=== PATIENT | male | born 1990 | race African-American/Black ===

== ENCOUNTER 2017-03-02 23:03 | Emergency (ER) | payer MEDICAID ==
[~2017-03-02] VITALS: Ht 185.4 cm; Wt 66.0 kg
[~2017-03-02 23:03] MED LIST: ARIP5TAB9 PO; MIRT15 PO
[2017-03-02 23:40] VITALS: BP 121/70
[2017-03-03] MEDS ORDERED: BACITRACIN 0.9 GM PACKET OINTMENT TP ONE
[2017-03-03] MEDS ORDERED: IBUPROFEN 600 MG TABLET PO ONE
== END 2017-03-03 00:22 | disposition home or self-care (01) ==
LOC: EDBD 23:05 → EMS 23:05
DX: S90.511A Abrasion, right ankle, initial encounter (principal); W18.40XA Slipping, tripping and stumbling without falling, unspecified, initial encounter; Y93.89 Activity, other specified; Y92.89 Other specified places as the place of occurrence of the external cause; Y99.8 Other external cause status
CPT/HCPCS: 99283

== ENCOUNTER 2017-05-30 16:06 | Inpatient (IN) | payer MEDICAID, OTHER ==
[~2017-05-30] VITALS: Ht 185.4 cm; Wt 52.2 kg
[~2017-05-30 16:06] MED LIST changes: +ARIP5TAB8 PO; -ARIP5TAB9 PO
[2017-05-30] MEDS ORDERED: CITA20TA9 PO (16:15)
[2017-05-30 18:59] LABS: BASOPHILS % (AUTO) 0.2 % (0.0-2.0); EOSINOPHILS % (AUTO) 1.8 % (1.0-6.0); HEMATOCRIT 44.7 % (41-53); HEMOGLOBIN 15.7 g/dL (13.5-17.5); LYMPHOCYTES # (AUTO) 1.5 K/uL (1.0-4.8); LYMPHOCYTES % (AUTO) 26.8 % (22.0-44.0); MEAN CORPUSCULAR HEMOGLOBIN 30.4 pg (26.0-34.0); MEAN CORPUSCULAR HGB CONC 35.1 G/dL (31.0-37.0); MEAN CORPUSCULAR VOLUME 87 fL (80-100); MONOCYTES # (AUTO) 0.2 K/uL (0.1-1.0); MONOCYTES % (AUTO) 4.3 % (2.0-9.0); NEUTROPHILS # (AUTO) 3.7 K/uL (1.8-7.7); NEUTROPHILS % (AUTO) 66.9 % (40.0-70.0); PLATELET COUNT (AUTO) 165 K/uL (150-450); RED BLOOD CELL COUNT(AUTO) 5.15 MIL/uL (4.50-5.90); RED CELL DISTRIBUTION WIDTH 13.1 % (11.5-14.5); WHITE BLOOD COUNT (AUTO) 5.5 K/uL (4.5-11.0)
[2017-05-30] MEDS ORDERED: LORazepam 1 MG TABLET PO PRN (19:00)
[2017-05-30] MEDS ORDERED: ZOLPIDEM TARTRATE 10 MG TABLET PO PRN (19:00)
[2017-05-30] MEDS ORDERED: HALOPERIDOL 5 MG TABLET PO PRN (19:00)
[2017-05-30 19:10] LABS: ANION GAP 5 mmol/L (8-16); CALCIUM, TOTAL 9.1 mg/dL (8.8-10.5); CARBON DIOXIDE 31 mmol/L (22-29); CHLORIDE 102 mmol/L (98-107); CREATININE 0.83 mg/dL (0.60-1.30); GLOMERULAR FILTR. RATE CALC > 60 mL/min (>60); POTASSIUM 3.8 mmol/L (3.5-5.1); SODIUM SERUM 138 mmol/L (136-145); UREA NITROGEN, BLOOD 10 mg/dL (7-18)
[2017-05-30 19:16] LABS: ALANINE AMINOTRANSFERASE 18 U/L (12-78); ALBUMIN 4.3 g/dL (3.4-5.0); ASPARTATE AMINOTRANSFERASE 20 U/L (15-37); BILIRUBIN,TOTAL 1.5 mg/dL (0.1-1.0); TOTAL PROTEIN, SERUM 8.1 g/dL (6.4-8.2)
[2017-05-30] MEDS ORDERED: INFLUENZA VIRUS VACCINE QVS 2017-18 (3YR+)/PF 60 MCG/0.5 ML SYRINGE IM ONE (20:30)
[2017-05-30 20:36] VITALS: BP 100/56
[2017-05-30] MEDS: MIRTAZAPINE 15 MG TABLET PO SCH (20:45)
[2017-05-30] MEDS ORDERED: CITALOPRAM HYDROBROMIDE 20 MG TABLET PO SCH (21:00)
[2017-05-31 08:30] VITALS: BP 128/66
[2017-05-31] MEDS ORDERED: ARIPiprazole 5 MG TABLET PO SCH (09:00)
[2017-05-31] MEDS ORDERED: BENZOCAINE/MENTHOL LOZENGE MM PRN (09:15)
[2017-05-31] MEDS ORDERED: LOPERAMIDE HCL 2 MG CAPSULE PO PRN (09:15)
[2017-05-31] MEDS ORDERED: ACETAMINOPHEN 325 MG TABLET PO PRN (09:15)
[2017-05-31] MEDS ORDERED: PETROLATUM,WHITE 71 GM JELLY TP PRN (09:15)
[2017-05-31] MEDS ORDERED: ALBUTEROL SULFATE HFA 90 MCG/PUFF 8 GM INHALER IH PRN (09:15)
[2017-05-31] MEDS ORDERED: MAG HYDROX/AL HYDROX/SIMETH ES 30 ML SUSPENSION UDCUP PO PRN (09:15)
[2017-05-31] MEDS ORDERED: ONDANSETRON HCL 4 MG TABLET PO PRN (09:15)
[2017-05-31] MEDS ORDERED: CloNIDine HCL 0.1 MG TABLET PO PRN (09:15)
[2017-05-31] MEDS ORDERED: IBUPROFEN 600 MG TABLET PO PRN (09:15)
[2017-05-31] MEDS ORDERED: BACITRACIN 28.4 GM OINTMENT TP PRN (09:15)
[2017-05-31] MEDS ORDERED: MAGNESIUM HYDROXIDE SUSPENSION 30 ML UDCUP PO PRN (09:15)
[2017-05-31] MEDS ORDERED: BENZOCAINE/MENTHOL LOZENGE [8 LOZENGES/PACKET] MM PRN (09:30)
[2017-05-31 16:44] VITALS: BP 112/63
[2017-05-31] MEDS: MIRTAZAPINE 15 MG TABLET PO SCH (21:00)
[2017-06-01 09:02] VITALS: BP 105/59
[2017-06-01] MEDS: ARIPiprazole 10 MG TABLET PO SCH (11:41)
[2017-06-01 17:18] VITALS: BP 106/65
[2017-06-01] MEDS: MIRTAZAPINE 15 MG TABLET PO SCH (21:00)
[2017-06-02 08:30] VITALS: BP 104/50
[2017-06-02] MEDS: ARIPiprazole 10 MG TABLET PO SCH (09:34)
[2017-06-02 19:23] VITALS: BP 121/61
[2017-06-02] MEDS: MIRTAZAPINE 15 MG TABLET PO SCH (21:44)
[2017-06-03 08:31] VITALS: BP 107/55
[2017-06-03] MEDS: ARIPiprazole 10 MG TABLET PO SCH (10:12)
[2017-06-03] MEDS: MIRTAZAPINE 15 MG TABLET PO SCH (20:32)
[2017-06-03 21:03] VITALS: BP 144/84
[2017-06-04 08:29] VITALS: BP 112/83
[2017-06-04] MEDS: ARIPiprazole 10 MG TABLET PO SCH (08:49)
[2017-06-04] MEDS: MIRTAZAPINE 15 MG TABLET PO SCH (21:17)
[2017-06-04 21:41] VITALS: BP 114/84
[2017-06-05 08:56] VITALS: BP 97/43
[2017-06-05] MEDS ORDERED: ARIPiprazole 10 MG TABLET PO SCH (09:00)
== END 2017-06-05 12:15 | disposition home or self-care (01) | DRG 751 ==
LOC: EMS 16:07 → 3EI 19:00
PROVIDERS: ADMIT Psychiatry & Neurology Psychiatry; ATTEND Psychiatry & Neurology Psychiatry
PROC: 3E0234Z Introduction of Serum, Toxoid and Vaccine into Muscle, Percutaneous Approach (ICD-10-PCS; principal; 2017-05-30)
DX: F33.2 Major depressive disorder, recurrent severe without psychotic features (principal); E44.0 Moderate protein-calorie malnutrition; F25.9 Schizoaffective disorder, unspecified; R45.850 Homicidal ideations; F17.200 Nicotine dependence, unspecified, uncomplicated; K59.00 Constipation, unspecified; Z91.5 Personal history of self-harm; Z68.1 Body mass index [BMI] 19.9 or less, adult; Z91.19 Patient's noncompliance with other medical treatment and regimen; Z79.899 Other long term (current) drug therapy; Z23 Encounter for immunization
CPT/HCPCS: 99285; G0480